=== PATIENT | male | born 1965 | race Caucasian/White ===

== ENCOUNTER 2017-12-25 15:15 | Emergency (ER) | payer BC ==
[~2017-12-25] VITALS: Ht 180.3 cm; Wt 94.2 kg
[2017-12-25 15:23] VITALS: BP 126/85
[2017-12-25] MEDS ORDERED: IBU800 MG PO (17:21)
== END 2017-12-25 17:48 | disposition home or self-care (01) ==
LOC: EME 15:15
DX: S76.311A Strain of muscle, fascia and tendon of the posterior muscle group at thigh level, right thigh, initial encounter (principal); Y93.64 Activity, baseball
CPT/HCPCS: 73552; 99281; 99284